=== PATIENT | female | born 1975 | race Caucasian/White ===

== ENCOUNTER → 2021-12-06 | Day surgery (SDC) | payer OTHER ==
[~2021-12-06] VITALS: Ht 157.5 cm; Wt 54.9 kg
[~2021-12-06] MED LIST: ASCORBIC ACID500 MG PO; ASPIR-TRIN325 MG PO; MAGNESIUM200 MG PO; TUMERIC PO; VITAMIN B-121000 MC1 PO; VITAMIN D310 MC3 PO
[2021-12-06 11:31] LABS: HCG (URINE) SCREEN NEGATIVE (NEGATIVE)
[2021-12-06 11:41] LABS: ALBUMIN 3.9 g/dL (3.4-5.0); BILIRUBIN - TOTAL 0.5 mg/dL (0.2-1.0); BUN/CREAT RATIO (CALC) 19.4 RATIO; CREATININE 0.62 mg/dL (0.51-0.95); GLOBULIN (CALCULATION) 3.3 g/dL; POTASSIUM 4.1 mmol/L (3.5-5.1); TOTAL PROTEIN 7.2 g/dL (6.4-8.2)
[2021-12-06 12:44] LABS: HCT 39.3 % (37.0-47.0); MCH 31.6 pg (25.0-31.0); MCHC 33.1 g/dL (32.0-36.0); MCV 95.4 fL (78.0-100.0); MPV 10.3 fL (6.0-9.5); RBC 4.12 M/uL (4.20-5.40); WBC 5.9 K/uL (4.0-10.5)
== END | disposition home or self-care (01) ==
LOC: FAS 10:25
PROVIDERS: Surgery
DX: R19.4 Change in bowel habit (principal); K29.60 Other gastritis without bleeding; K21.9 Gastro-esophageal reflux disease without esophagitis; K58.0 Irritable bowel syndrome with diarrhea; K92.1 Melena; K43.9 Ventral hernia without obstruction or gangrene; Z88.0 Allergy status to penicillin; Z79.82 Long term (current) use of aspirin
CPT/HCPCS: 36415; 80053; 84703; J1610; J2250; J2704; J7120

== ENCOUNTER 2022-01-13 08:10 | Emergency (ER) | payer OTHER ==
[~2022-01-13] VITALS: Ht 157.5 cm; Wt 54.4 kg
[2022-01-13] MEDS ORDERED: ULTRAM50 MG PO (09:44)
== END 2022-01-13 10:26 | disposition home or self-care (01) ==
LOC: FER 08:10
DX: S82.141A Displaced bicondylar fracture of right tibia, initial encounter for closed fracture (principal); Z28.311 Partially vaccinated for COVID-19; F17.200 Nicotine dependence, unspecified, uncomplicated; Z88.0 Allergy status to penicillin; W16.512A Jumping or diving into swimming pool striking water surface causing other injury, initial encounter; Y93.39 Activity, other involving climbing, rappelling and jumping off; Y92.34 Swimming pool (public) as the place of occurrence of the external cause
CPT/HCPCS: 73564; 73700; 96372; J1885